=== PATIENT | male | born 1955 | race Caucasian/White ===

== ENCOUNTER 2018-03-15 09:08 | Inpatient (IN) ==
[2018-03-15] MEDS ORDERED: Acetaminophen 325 MG TABLET PO PRN (09:19)
[2018-03-15] MEDS ORDERED: Naloxone 0.4 MG/ML INJ IVP PRN (09:19)
[2018-03-15 10:10] LABS: Basophils # 0.1 K/mcL (0.0-0.2); Basophils % 1.1 %; Eosinophils # 0.3 K/mcL (0.0-0.6); Eosinophils % 5.2 %; Hematocrit 44.3 % (37.5-50.1); Immature Granulocytes % 0.2 % (0-4); Lymphocytes # 1.3 K/mcL (0.6-4.6); Lymphocytes % 20.2 %; Mean Corpuscular HGB Conc 33.9 g/dL (31.6-35.5); Mean Corpuscular Hemoglobin 29.8 pg (28.0-33.3); Mean Corpuscular Volume 88.1 fL (83.0-100.0); Mean Platelet Volume 10.5 fL (9.4-12.4); Monocytes # 0.6 K/mcL (0.0-1.3); Monocytes % 10.3 %; Neutrophils # 3.9 K/mcL (1.6-8.9); Platelet Count 257 K/mcL (140-400); Red Blood Count 5.03 M/mcL (4.19-5.50); Red Cell Distribution Width 13.9 % (11.5-14.5)
[2018-03-15 10:16] LABS: INR 1.9; Prothrombin Time 21.6 Seconds (9.4-12.1)
[2018-03-15 10:28] LABS: BUN/Creatinine Ratio 23 (6-26); Blood Urea Nitrogen 17 mg/dL (8-23); Calcium 9.4 mg/dL (8.6-10.3); Carbon Dioxide 26 mEq/L (23-29); Chloride 104 mEq/L (98-107); Glucose 112 mg/dL (70-105); Osmolality,Calculated 288 (280-300); Potassium 3.7 mEq/L (3.5-5.1); Sodium 138 mEq/L (136-145); eGFR For Non-African Americans > 60 (> 60)
--- NOTE | 2018-03-15 10:59 | History & Physical Report ---
Date of Encounter: 03/15/18 Time of Encounter: 10:00 24 Hour HP Update - Instructions Instructions: If the History and Physical is less than 30 days old and was completed prior to A.M. admission and or procedure and has NOT been updated on calendar day of procedure please complete this update prior to performing procedure. - Update Patient reports changes in Medical Condition: No Changes in examination, assessment, or condition: No Changes in Medication: No Preop tests/diagnostics Reviewed: Yes
--- NOTE | 2018-03-15 11:02 | Event Note ---
Date of Encounter: 03/15/18 Time of Encounter: 10:59 - Cardiology Event Note Patient with known history of persistent a.fib admitted for anti-arrythmic initiation. Patient follows with Dr.John Menchaca, [facility], outpatient. Plan for sotalol 80mg BID. ECG with a.fib, HR 85, QT 380, QTc 422ms. Renal function normal. On coumadin for anticoagulation, of note, INR has been subtherapeutic for the past 30 days. If would require cardioversion, would need SHARIF prior. Recent stress test negative for ischemia, positive for previous infarct. Discussed and reviewed with Dr.John Menchaca, will start sotalol. Will check ECGs daily in am. Will continue to monitor.
[2018-03-15] MEDS ORDERED: SUMAtriptan succinate 50 MG TABLET PO PRN (14:16)
[2018-03-15] MEDS ORDERED: Warfarin perPT PO PRN (18:00)
[2018-03-15] MEDS ORDERED: *HR* Warfarin 10 MG TABLET PO ONE (18:00)
[2018-03-15] MEDS: BENADRYL 25MG PO PRN (22:26)
[2018-03-16 05:25] LABS: Basophils # 0.1 K/mcL (0.0-0.2); Basophils % 1.2 %; Eosinophils # 0.4 K/mcL (0.0-0.6); Eosinophils % 7.5 %; Hematocrit 40.9 % (37.5-50.1); Hemoglobin 13.5 g/dL (12.9-16.9); Immature Granulocytes % 0.2 % (0-4); Lymphocytes # 1.6 K/mcL (0.6-4.6); Lymphocytes % 28.3 %; Mean Corpuscular Volume 87.8 fL (83.0-100.0); Mean Platelet Volume 10.1 fL (9.4-12.4); Monocytes # 0.7 K/mcL (0.0-1.3); Monocytes % 12.2 %; Neutrophils # 2.9 K/mcL (1.6-8.9); Platelet Count 208 K/mcL (140-400); Red Blood Count 4.66 M/mcL (4.19-5.50); Segmented Neutrophils % 50.6 %
[2018-03-16 05:30] LABS: INR 1.8; Prothrombin Time 20.7 Seconds (9.4-12.1)
[2018-03-16] MEDS: FLUTICASONE PROPIONATE NS SCH (08:55)
[2018-03-16] MEDS ORDERED: Ketorolac OPTH Soln 5 ML BOTTLE BOTH EYES SCH (09:00)
[2018-03-16] MEDS ORDERED: Fluticasone Propionate Nasal 50 MCG/SPRAY BOTTLE NS SCH (09:00)
--- NOTE | 2018-03-16 10:49 | Electrophysiology ProgressNote ---
Date of Encounter: 03/16/18 Time of Encounter: 10:45 Assessment and Plan (1) Encounter for monitoring anti-arrhythmic therapy Current Visit: Yes Status: Acute Per EP: -Admitted for sotalol initiation. -Baseline ECG with 03/15/18 A.fib, HR 85. QT 380, QTc 422ms. -ECG today s/p 2 total doses with a.fib, HR 94. QT 383, QTc 435ms. -Remains a.fib on telemetry. -On coumadin pharmacy to dose for anticoagulation. -Continue sotalol. -Will make NPO after midnight for possible SHARIF/DCCV in am, if remains in a.fib. Requires SHARIF due to subtherapeutic INRs. -ECG in am. -Will continue to monitor. (2) Afib Current Visit: No Status: Chronic Per EP: -Known persistent a.shea. -Currently on sotalol and coreg. -ON coumadin for anticoagulation. -HR controlled. -Will continue to monitor. Qualifiers: Atrial fibrillation type: persistent Qualified Code(s): I48.1 - Persistent atrial fibrillation Discussion w patient/family: The assessment and plan as outlined above was discussed with the patient who expressed understanding and agreement. All questions were answered. Thank you for involving us in the care of your patient. Please call with any questions. Discussed and reviewed with Dr.John Menchaca. Subjective Principal diagnosis: a.fib, sotalol initiation Interval history: Patient sitting in chair. Denies complaints. Objective Vital Signs, Last 4 Hours Temp Pulse Resp BP Pulse Ox 03/16/18 07:00 97.7 F 84 18 119/92 93 General: Conversant, No Apparent Distress HEENT: Atraumatic, Normocephaly, Mucus Membranes Moist Neck: No JVD, Normal carotid pulses Cardiac: Normal S1 and S2, No Murmur, Other (Irregularly irregular) Lungs: Normal Breath Sounds, No Wheeze, Rales, Rhonchi Neuro: Alert and responsive, No focal deficits noted Abdomen: Soft, Non-Tender Skin: No rashes noted on visualized skin Musculoskeletal: No Chest Wall Tenderness Extremities: No Clubbing, No Cyanosis, No Edema, Normal Pulses Results 03/16/18 05:09 03/15/18 09:33 Lab Results Active Medications Acetaminophen (Tylenol) 650 mg PO Q6HR PRN PRN Reason: Mild Pain/Fever Stop: 09/14/18 09:20 Carvedilol (Coreg) 3.125 mg PO BIDWM JOVAN PRN Reason: Protocol Stop: 09/14/18 17:01 Last Admin: 03/16/18 08:55 Dose: 3.125 mg Naloxone HCl (Narcan) 0.4 mg IVP Q2MIN PRN PRN Reason: SEE COMMENTS Stop: 09/14/18 09:20 Omeprazole (Prilosec) 40 mg PO DAILY JOVAN Stop: 09/15/18 09:01 Last Admin: 03/16/18 08:59 Dose: Not Given Pharmacy Profile Note (Patient Taking Own Medication) 1 each PO HS PRN PRN Reason: Insomnia Stop: 09/14/18 20:30 Last Admin: 03/15/18 22:26 Dose: 1 each Pharmacy Profile Note (Patient Taking Own Medication) 2 each NS DAILY JOVAN PRN Reason: Protocol Stop: 09/15/18 09:01 Last Admin: 03/16/18 08:55 Dose: 2 each Pharmacy Profile Note (Patient Taking Own Medication) 2 each PO BID JOVAN Stop: 09/14/18 21:01 Last Admin: 03/16/18 08:56 Dose: 2 each Pharmacy Profile Note (Patient Taking Own Medication) 1 each OP DAILY JOVAN Stop: 09/15/18 09:01 Last Admin: 03/16/18 08:55 Dose: 1 each Pharmacy Profile Note (Patient Taking Own Medication) 1 each PO DAILY JOVAN Stop: 09/15/18 09:01 Last Admin: 03/16/18 08:55 Dose: 1 each Sotalol HCl (Betapace) 80 mg PO Q12H JOVAN Stop: 09/14/18 11:01 Last Admin: 03/15/18 23:11 Dose: 80 mg Sumatriptan Succinate (Imitrex) 50 mg PO DAILY PRN PRN Reason: Migraine Headache Stop: 09/14/18 14:17 Warfarin Sodium (Coumadin Perpt) 1 each PO DAILY@1800 PRN PRN Reason: SEE COMMENTS Stop: 09/14/18 18:01 Warfarin Sodium (Coumadin) 10 mg PO 1800 ONE Stop: 03/16/18 18:01 Laboratory Tests 03/15/18 03/16/18 03/16/18 09:33 05:09 05:09 Hgb 13.5 D INR 1.8 Creatinine 0.74 - Imaging and Cardiology Chest Xray: report reviewed Stress Test: report reviewed - EKG Interpretation EKG results cardiology: personally reviewed (ECG today with a.fib, HR 94. QT 383 , QTc 435 ms.), other (Telemetry reveiwed with average HR previous 12 hours noted to be 93, a.fib. PVCs noted.) Consult Discharge Plan - Plan Referrals: Law Menchaca MD [Partnered Physician] - (office will call patient at home with follow up) Jaime Sorenson [Primary Care Provider] - (sent web reBuildFax on 03-16-18 @ 1011)
[2018-03-16] MEDS ORDERED: *HR* Warfarin 10 MG TABLET PO ONE (18:00)
[2018-03-16] MEDS: BENADRYL 25MG PO PRN (22:11)
[2018-03-17 04:58] LABS: Basophils # 0.1 K/mcL (0.0-0.2); Basophils % 1.3 %; Eosinophils # 0.5 K/mcL (0.0-0.6); Eosinophils % 7.1 %; Hematocrit 44.8 % (37.5-50.1); Hemoglobin 14.6 g/dL (12.9-16.9); Immature Granulocytes % 0.3 % (0-4); Lymphocytes % 28.9 %; Mean Corpuscular HGB Conc 32.6 g/dL (31.6-35.5); Mean Corpuscular Hemoglobin 29.1 pg (28.0-33.3); Mean Corpuscular Volume 89.4 fL (83.0-100.0); Mean Platelet Volume 10.1 fL (9.4-12.4); Monocytes # 0.7 K/mcL (0.0-1.3); Monocytes % 9.6 %; Neutrophils # 3.6 K/mcL (1.6-8.9); Platelet Count 243 K/mcL (140-400); Red Blood Count 5.01 M/mcL (4.19-5.50); Red Cell Distribution Width 13.9 % (11.5-14.5); Segmented Neutrophils % 52.8 %
[2018-03-17 05:03] LABS: INR 1.5; Prothrombin Time 17.3 Seconds (9.4-12.1)
[2018-03-17 07:33] VITALS: BP 123/80
[2018-03-17] MEDS: FLUTICASONE PROPIONATE NS SCH (08:03)
--- NOTE | 2018-03-17 10:40 | Discharge Summary ---
- NOTES TO OUTPATIENT PROVIDER Notes to Outpatient Provider: Initiated on sotalol. Did not undergo SHARIF/DCCV due to subtherapeutic INRs. Will arrange as outpatient when INRs therapeutic. Orders not resulted at time of discharge: Pending orders 03/18/18 04:00 INR/PT [Prothrombin Time INR] [COAG] AM 0400 03/19/18 04:00 INR/PT [Prothrombin Time INR] [COAG] AM 0400 03/20/18 04:00 INR/PT [Prothrombin Time INR] [COAG] AM 0400 Date of Encounter: 03/17/18 Time of Encounter: 10:37 - Discharge Diagnosis (1) Encounter for monitoring anti-arrhythmic therapy Priority: Primary Status: Acute Comments: Admitted for sotalol initiation. (2) Afib Priority: Secondary Status: Chronic Comments: Known persistent a.fib. Qualifiers: Atrial fibrillation type: persistent Qualified Code(s): I48.1 - Persistent atrial fibrillation - Hospital Course Hospital course: Mr. Multani is a 62 year old male who was admitted to [facility] for sotalol inititation. Patient is currently s/p 5th dose of sotalol. QT, QTc has remained stable. ECGs reviewed with Dr.John Menchaca. Unfortunately, patient's INR has been subtherapeutic and was not recommended for SHARIF/DCCV until INR therapurtic. Discussed options with patient regarding remaining inpatient, or discharge with outpatient SHARIF/DCCV. AT this time, patient has elected to be discharged home and will call office and arrange outpatient SHARIF/DCCV. Will need SHARIF due to subtherapeutic INRs. Patient remains in a.fib, HRs controlled. Average HR previous 12 hours noted to be 94. Vital signs stable. Patient is being prepped for discharge home in stable condition. Patient will follow with [facility], follow up set. Of note, patient's INRs monitored by coumadin clinic. - Time Spent with Patient Total time spent providing and/or coordinating discharge services: Less than 30 minutes - Discharge Medications Prescriptions: Carvedilol [Coreg] 3.125 mg PO BIDWM #60 tablet Sotalol [Betapace] 80 mg PO Q12H #60 tablet Home Medications: Fluticasone Propionate Nasal [Flonase] 2 spray NS DAILY 08/26/17 [History] Losartan Potassium [Cozaar] 100 mg PO DAILY 08/26/17 [History] Omeprazole [PriLOSEC] 40 mg PO DAILY 08/26/17 [History] SUMAtriptan succinate [Imitrex] 50 mg PO DAILY PRN 08/26/17 [History] Warfarin [Coumadin] 10 mg PO SUMOTUTHFRSA 03/15/18 [History] Warfarin [Coumadin] 15 mg PO WE 03/15/18 [History] Carvedilol [Coreg] 3.125 mg PO BIDWM #60 tablet 03/17/18 [Rx] Patient Taking Own Medication 1 each OP DAILY each 03/17/18 [Rx] Patient Taking Own Medication 1 each PO HS PRN each 03/17/18 [Rx] Patient Taking Own Medication 2 each PO BID each 03/17/18 [Rx] Sotalol [Betapace] 80 mg PO Q12H #60 tablet 03/17/18 [Rx] Allergies/Adverse Reactions: 3 Allergy/AdvReac Type Severity Reaction Status Date / Time No Known Allergies Allergy Verified 08/26/17 13:17 Date of admission: 03/15/18 09:09 Primary care physician: Jaime Sorenson Discharging clinician: Cary Esquivel Anticipated date of discharge: 03/17/18 Physical Examination Vital Signs, Last 4 Hours Temp Pulse Resp BP Pulse Ox 03/17/18 08:00 97.7 F 96 18 123/80 95 03/17/18 07:31 97.7 F 96 18 123/80 95 General: Conversant, No Apparent Distress HEENT: Atraumatic, Normocephaly, Mucus Membranes Moist Neck: No JVD, Normal carotid pulses Cardiac: Normal S1 and S2, No Murmur, Other (Irregularly irregular ) Lungs: Normal Breath Sounds, No Wheeze, Rales, Rhonchi Neuro: Alert and responsive, No focal deficits noted Abdomen: Soft, Non-Tender Skin: No rashes noted on visualized skin Musculoskeletal: No Chest Wall Tenderness Extremities: No Clubbing, No Cyanosis, No Edema, Normal Pulses - Patient Status Disposition: Home, Self-Care Condition: Good Functional capacity at discharge: independent ambulation Overall status at discharge: patient is progressing back to baseline - Discharge Instructions Instructions: Carvedilol (By mouth), Sotalol (By mouth), Atrial Fibrillation ( DC) Follow Up With: Law Menchaca MD [Partnered Physician] - (office will call patient at home with follow up) Jaime Sorenson [Primary Care Provider] - 03/23/18 10:00 am () - Diet and Activity Activity: increase activity as tolerated Diet: advance to your usual diet
--- NOTE | 2018-03-17 17:26 | Electrocardiograph Report ---
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
[2018-03-17] MEDS ORDERED: *HR* Warfarin 10 MG TABLET PO ONE (18:00)
--- NOTE | 2018-03-21 08:32 | Electrocardiograph Report ---
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
--- NOTE | 2018-03-21 09:22 | Electrocardiograph Report ---
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
--- NOTE | 2018-03-21 09:27 | Electrocardiograph Report ---
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
== END 2018-03-17 12:50 | disposition home or self-care (01) | DRG 949 ==
LOC: 2NNU 09:09
PROVIDERS: ADMIT Internal Medicine Clinical Cardiac Electrophysiology; ATTEND Internal Medicine Clinical Cardiac Electrophysiology

== ENCOUNTER 2018-04-27 09:00 | Inpatient (IN) ==
[2018-04-27] MEDS ORDERED: Naloxone 0.4 MG/ML INJ IVP PRN (09:36)
--- NOTE | 2018-04-27 09:39 | History & Physical Report ---
Addendum entered and electronically signed by Law Menchaca MD 04/29/18 12:52: I have personally performed a face to face evaluation on this patient. I have reviewed and agree with the care plan. History and Exam by me shows: Admitted for sotalol titration. Addendum entered and electronically signed by Santy Burdick CNP 04/27/18 10:49: Laboratory Tests 03/15/18 03/17/18 03/23/18 09:33 04:36 10:58 Hgb 14.6 Hct 44.8 INR 1.9 Creatinine 0.74 Est GFR (Non-Af Amer) > 60 See note on chart for full H&P. Patient denies any new concerns or complaints since last seen in the office 04/14/2018 by Geraldine Weiss CNP. Patient directly admitted for sotalol increase. Reports has not had sotalol dose this morning. Reports he can "tell he is out of rhythm". ECG shows A. fib in the 70s with current QTC 425 ms. Remains anticoagulated with Xarelto 20mg PO daily. Has not missed any doses in past 30 days. We will proceed with increased dose of sotalol 120mg by mouth every 12 hours with potential DC cardioversion morning. All questions answered. Negative nuclear stress test February 2018 with EF 50%. Original Note: Date of Encounter: 04/27/18 Time of Encounter: 09:40 24 Hour HP Update - Instructions Instructions: If the History and Physical is less than 30 days old and was completed prior to A.M. admission and or procedure and has NOT been updated on calendar day of procedure please complete this update prior to performing procedure. - Update Patient reports changes in Medical Condition: No Changes in examination, assessment, or condition: No Changes in Medication: No Preop tests/diagnostics Reviewed: Yes Review of Patient reveals the following changes:: Direct admission for sotalol titration for paroxysmal atrial fibrillation
[2018-04-27] MEDS ORDERED: SUMAtriptan succinate 50 MG TABLET PO PRN (10:44)
[2018-04-27] MEDS: Ketorolac OPTH Soln 5 ML BOTTLE BOTH EYES SCH (11:24)
[2018-04-27] MEDS: Fluticasone Propionate Nasal 50 MCG/SPRAY BOTTLE NS SCH (11:24)
--- NOTE | 2018-04-27 17:11 | Electrocardiograph Report ---
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
[2018-04-27] MEDS: *HR* Rivaroxaban 10 MG TABLET PO SCH (17:40)
--- NOTE | 2018-04-28 09:45 | Electrophysiology ProgressNote ---
Date of Encounter: 04/28/18 Time of Encounter: 08:20 Assessment and Plan (1) Encounter for monitoring anti-arrhythmic therapy Current Visit: No Status: Acute Mr. Multani presented 04/27/18 for sotalol therapy dose titration for recurrent afib. He will require five monitored doses. Sotalol increased from 80 mg BID to 120 mg BID. He is tolerating well. Baseline ECG -A. fib in the 70s with current QTC 425 ms. ECG 04/28/18- A. fib, HR 78bpm. QT/QTc 407/440, QRS 121. S/p 3 total doses increased sotalol. Remains atrial fibrillation with avg HR 87 bpm, min HR 54 bpm. He is also on carvedilol 3.125 mg BID. On xarelto for buttermaker AC. Denies missed doses in the past 30 days. If he remains in atrial fibrillation he will need DCCV tomorrow morning after his 5th dose. NPO after midnight. Patient agrees with plan. (2) Afib Current Visit: No Status: Chronic Qualifiers: Atrial fibrillation type: paroxysmal Qualified Code(s): I48.0 - Paroxysmal atrial fibrillation Discussion w patient/family: The assessment and plan as outlined above was discussed with the patient and/or family members who expressed understanding and agreement. All questions were answered. Thank you for involving us in the care of your patient. Please call with any questions. Subjective Principal diagnosis: atrial fibrillation, antiarrhythmic therapy Interval history: Mr. Multani is ambulatin in his room with no complaints. Denies chest pain or SOB. Denies palpitations. Denies orthopnea, PND, or edema. Objective Vital Signs, Last 4 Hours Temp Pulse Resp BP Pulse Ox 04/28/18 08:40 97.9 F 94 17 107/69 94 General: Conversant, No Apparent Distress HEENT: Atraumatic, Normocephaly, Mucus Membranes Moist Neck: No JVD, Normal carotid pulses Cardiac: Other (Irregularly irregular) Lungs: Normal Breath Sounds, No Wheeze, Rales, Rhonchi Neuro: Alert and responsive, No focal deficits noted Abdomen: Soft, Non-Tender Skin: No rashes noted on visualized skin Musculoskeletal: No Chest Wall Tenderness Extremities: No Clubbing, No Cyanosis, No Edema, Normal Pulses Results - Imaging and Cardiology Echo: report reviewed - EKG Interpretation EKG results cardiology: personally reviewed - VTE Reasons for not Prescribing Prophylaxis: Not indicated-Anticoagulated or INR therapeutic Consult Discharge Plan - Plan Referrals: Jaime Sorenson [Primary Care Provider] -
[2018-04-28] MEDS: Fluticasone Propionate Nasal 50 MCG/SPRAY BOTTLE NS SCH (10:02)
[2018-04-28] MEDS: Ketorolac OPTH Soln 5 ML BOTTLE BOTH EYES SCH (10:03)
--- NOTE | 2018-04-28 16:18 | Electrocardiograph Report ---
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
[2018-04-28] MEDS: *HR* Rivaroxaban 10 MG TABLET PO SCH (17:32)
--- NOTE | 2018-04-29 08:17 | Event Note ---
Date of Encounter: 04/29/18 Time of Encounter: 08:15 - Cardiology Event Note Status post 5 doses of increased sotalol 120 mg by mouth every 12 hours. Currently A. fib in the 70s to 90s on telemetry. Current ECG with QTC of: 431ms, afib 70's. Patient has not missed any doses of Xarelto in the past 30 days. Plan for DC cardioversion today and possible discharge this afternoon. All questions answered.
[2018-04-29] MEDS: Ketorolac OPTH Soln 5 ML BOTTLE BOTH EYES SCH (09:10)
[2018-04-29] MEDS: Fluticasone Propionate Nasal 50 MCG/SPRAY BOTTLE NS SCH (09:11)
[2018-04-29] MEDS ORDERED: *HR* FentaNYL (PF) 100 MCG/2 ML VIAL IVP PRN (12:40)
[2018-04-29] MEDS ORDERED: 0.9 % Sodium Chloride 500 ML IVC ONE (12:41)
[2018-04-29] MEDS ORDERED: *HR* Midazolam HCl 2 MG/2 ML VIAL IVP PRN (12:41)
[2018-04-29 13:25] VITALS: BP 120/95
[2018-04-29] MEDS ORDERED: *HR* Midazolam HCl 5 MG/5 ML VIAL IVP ONE ×3 (13:33→13:34)
--- NOTE | 2018-04-29 14:32 | Discharge Summary ---
Orders not resulted at time of discharge: Pending orders 04/29/18 08:14 EV cardioversion Routine 04/30/18 06:00 ECG 12 lead ECG [ECG] AM 0600 Date of Encounter: 04/29/18 Time of Encounter: 14:32 - Discharge Diagnosis (1) Encounter for monitoring anti-arrhythmic therapy Priority: Primary Status: Acute Comments: Status post direct admission for sotalol titration. (2) Afib Priority: Primary Status: Chronic Comments: PAF Qualifiers: Atrial fibrillation type: paroxysmal Qualified Code(s): I48.0 - Paroxysmal atrial fibrillation - Hospital Course Hospital course: Mr. Multani is a 62 year old male directly admitted for titration of sotalol. Patient received 5 doses of 120 mg by mouth every 12 hours with stable QTC. Patient remained A. fib throughout hospital stay, rate controlled. Underwent DC cardioversion with 1 shock today 300 J with successful conversion to sinus rhythm. Remains anticoagulated with Xarelto. During hospital stay, Coreg was decreased from 6.25mg PO BID to 3.125mg PO BID. Continue to monitor as outpatient and consider discontinuation if clinically warranted. Patient provided new prescription for sotalol 120 mg by mouth twice a day. All questions answered. Postprocedure education provided. - Time Spent with Patient Total time spent providing and/or coordinating discharge services: Less than 30 minutes - Discharge Medications Prescriptions: Sotalol [Betapace] 120 mg PO Q12HR #90 tablet Carvedilol [Coreg] 3.125 mg PO BIDWM #60 tablet Home Medications: Fluticasone Propionate Nasal [Flonase] 2 spray NS DAILY 08/26/17 [History] Losartan Potassium [Cozaar] 100 mg PO DAILY 08/26/17 [History] Omeprazole [PriLOSEC] 40 mg PO DAILY PRN 08/26/17 [History] SUMAtriptan succinate [Imitrex] 50 mg PO DAILY PRN 08/26/17 [History] DiphenhydraMINE [Benadryl] 25 mg PO HS 04/27/18 [History] Guaifenesin [Guaifenesin ER] 1,200 mg PO BID 04/27/18 [History] Ketorolac OPTH Soln [Acular] 1 drop BOTH EYES DAILY 04/27/18 [History] Rivaroxaban [Xarelto] 20 mg PO DAILY 04/27/18 [History] Carvedilol [Coreg] 3.125 mg PO BIDWM #60 tablet 04/29/18 [Rx] Sotalol [Betapace] 120 mg PO Q12HR #90 tablet 04/29/18 [Rx] Allergies/Adverse Reactions: Allergy/AdvReac Type Severity Reaction Status Date / Time No Known Allergies Allergy Verified 08/26/17 13:17 Date of admission: 04/27/18 09:07 Primary care physician: Jaime Sorenson Consults: none Discharging clinician: Santy Burdick Anticipated date of discharge: 04/29/18 Physical Examination Vital Signs, Last 4 Hours Temp Pulse Resp BP Pulse Ox 04/29/18 13:21 97.7 F 77 12 120/95 94 04/29/18 11:36 97.4 F L 87 16 128/89 95 General: Conversant, No Apparent Distress HEENT: Atraumatic, Normocephaly, Mucus Membranes Moist Neck: No JVD, Normal carotid pulses Cardiac: Reg Rate and Rhythm, Normal S1 and S2, No Murmur Lungs: Normal Breath Sounds, No Wheeze, Rales, Rhonchi Neuro: Alert and responsive, No focal deficits noted Abdomen: Soft, Non-Tender Skin: No rashes noted on visualized skin Musculoskeletal: No Chest Wall Tenderness Extremities: No Clubbing, No Cyanosis, No Edema, Normal Pulses - Patient Status Disposition: Home, Self-Care Condition: Fair Functional capacity at discharge: independent ambulation Overall status at discharge: patient is progressing back to baseline - Discharge Instructions Follow Up With: Jaime Sorenson [Primary Care Provider] - 05/07/18 10:00 am () Willie Hazel MD [Partnered Physician] - 05/05/18 11:00 am - Diet and Activity Diet: advance to your usual diet - VTE Reasons for not Prescribing Prophylaxis: Not indicated-Anticoagulated or INR therapeutic
== END 2018-04-29 15:34 | disposition home or self-care (01) | DRG 950 ==
LOC: 3BNU 09:07
PROVIDERS: ADMIT Internal Medicine Clinical Cardiac Electrophysiology; ATTEND Internal Medicine Clinical Cardiac Electrophysiology

== ENCOUNTER 2018-07-12 07:24 | Inpatient (IN) ==
[2018-07-12] MEDS ORDERED: Lidocaine 2% Syringe 100 MG/5 ML IV ONE (07:34)
[2018-07-12] MEDS ORDERED: Neostigmine Methylsulfate 3 MG/3 ML SYRINGE IV ONE (07:34)
[2018-07-12] MEDS ORDERED: Lidocaine -MPF 4% 5 ML AMPUL INFILT ONE (07:34)
[2018-07-12] MEDS ORDERED: *HR* Rocuronium Bromide 50 MG/5 ML VIAL IVC ONE (07:34)
[2018-07-12] MEDS ORDERED: Ondansetron 4 MG/2 ML VIAL IVP ONE (07:34)
[2018-07-12] MEDS ORDERED: *HR* Propofol 200 MG/20 ML VIAL IVP ONE (07:34)
[2018-07-12] MEDS ORDERED: 0.9 % Sodium Chloride 10 ML PF VIAL IVP ONE (07:34)
[2018-07-12] MEDS ORDERED: *HR* Phenylephrine 10 MG/ML VIAL IVC ONE (07:34)
[2018-07-12] MEDS ORDERED: 0.9 % Sodium Chloride 1,000 ML IVC SCH (07:45)
[2018-07-12] MEDS ORDERED: *HR* Heparin 10,000 UNIT/10 ML VIAL ONE (07:53)
[2018-07-12] MEDS ORDERED: Heparin 1,000 UNITS/500 mL 1,500 ML ONE (07:53)
--- NOTE | 2018-07-12 07:59 | Anesthesia Evaluation PreOp ---
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 tkr, R. Shoulder) Alcohol Use: none Drug use: none Medications and Allergies Fluticasone Propionate Nasal [Flonase] 2 spray NS DAILY 08/26/17 [History] Losartan Potassium [Cozaar] 100 mg PO DAILY 08/26/17 [History] SUMAtriptan succinate [Imitrex] 50 mg PO DAILY PRN 08/26/17 [History] DiphenhydraMINE [Benadryl] 25 mg PO HS 04/27/18 [History] Guaifenesin [Guaifenesin ER] 1,200 mg PO BID 04/27/18 [History] Ketorolac OPTH Soln [Acular] 1 drop BOTH EYES DAILY 04/27/18 [History] Rivaroxaban [Xarelto] 20 mg PO DAILY 04/27/18 [History] Carvedilol [Coreg] 3.125 mg PO BIDWM #60 tablet 04/29/18 [Rx] Sotalol [Betapace] 120 mg PO Q12HR #90 tablet 04/29/18 [Rx] Allergy/AdvReac Type Severity Reaction Status Date / Time No Known Allergies Allergy Verified 08/26/17 13:17 - Meds/Allergy Pre-op Review Medications Reviewed: Yes Allergies Reviewed: Yes Beta Blockers on Current Med List: Yes (coreg ) If Beta Blockers taken, Date/Time (Last Dose taken): 0700 Anesthesia Results - Labs Laboratory Tests 06/30/18 06/30/18 06/30/18 12:04 12:04 12:04 WBC 6.2 Hgb 14.4 Hct 44.0 Plt Count 226 PT 12.3 H INR 1.1 APTT 34.9 Sodium 139 Potassium 4.2 Chloride 103 Carbon Dioxide 29 BUN 13 Creatinine 0.70 Est GFR ( Amer) > 60 - Imaging EKG: report reviewed (Atrial fibrillation with elevated heart rate Borderline repolarization abnormality) Additional studies: 03/2018 SHARIF Impressions: LVEF 50%. Normal LV size and low normal function. Right ventricle was normal in size and systolic function. Moderate to severely dilated left atrium. LA appendage is normal in appearance. No thrombus. The LA appendage flow velocity is reduced. Mild mitral regurgitation. RVSP not well obtained due to suboptimal TR jet. Cardioversion Impressions: Successful SHARIF guided cardioversion using 300 Joules. Conversion to sinus bradycardia, HR 50s. No neurological deficits after the procedure. Left Ventricular Wall Motion: Transesophageal Echo Findings All wall segments showed normal motion. Findings: Study Quality * Technically adequate exam. ECG Findings * Atrial fibrillation. Left Ventricle * LVEF 50%. * Normal LV size and low normal function. Right Ventricle * Right ventricle was normal in size and systolic function. Left Atrium * Moderate to severely dilated left atrium. * LA appendage is normal in appearance. No thrombus. * The LA appendage flow velocity is reduced. Right Atrium * Mildly dilated right atrium. Interatrial Septum * No evidence of patent foramen ovale by color Doppler. Aortic Valve * Trileaflet aortic valve. * Normal structure and function. * No aortic regurgitation. * No aortic stenosis. Mitral Valve * Normal structure. * Mild mitral regurgitation. * No mitral stenosis. Tricuspid Valve * Normal structure and function. * Trace tricuspid regurgitation. * RVSP not well obtained due to suboptimal TR jet. Pulmonic Valve * Normal structure and function. * No pulmonic regurgitation. Aorta * The aortic root is not dilated. Minimal plaque formation in the descending thoracic aorta. Pericardium * No pericardial effusion. Pulmonary Artery * Normal pulmonary artery. Anesthesia Exam Weight: 115 kg NPO (# of Hours): > 8 hr - HEENT Pupil (Motor): Pupils equal, EOMI Mallampati: II Teeth: Normal Oral Opening: Greater than 3 - BARREL PLANER LOC: Oriented BARREL PLANER Motor: Normal RUE, Normal LUE, Normal RLE, Normal LLE, Normal Face BARREL PLANER Sensory: Normal: RUE, LUE, RLE, LLE, Face - Cardiac Rhythm: Irregular Murmur: None - Pulmonary Breath Sounds: bilateral Clear Respiratory Effort: Symmetrical Anesthesia Assess/Plan ASA Score: 3 (HTN, Afib) Level of consciousness: Cooperative, Oriented, Tranquil Anesthetic Plan: General Monitoring Plan: Standard Monitors Recovery Plan: PACU
[2018-07-12] MEDS ORDERED: *HR* FentaNYL (PF) 100 MCG/2 ML VIAL ONE (08:18)
[2018-07-12] MEDS ORDERED: *HR* Midazolam HCl 2 MG/2 ML VIAL ONE (08:19)
[2018-07-12] MEDS ORDERED: *HR* Vasopressin 20 UNIT/ML VIAL ONE (08:33)
--- NOTE | 2018-07-12 08:56 | Electrophysiology H & P ---
Date of Encounter: 07/12/18 Time of Encounter: 08:53 Assessment and Plan (1) Afib Current Visit: No Status: Chronic The assessment and plan as outlined above was discussed with the patient and/or family members who expressed understanding and agreement. All questions were answered. Qualifiers: Atrial fibrillation type: paroxysmal Qualified Code(s): I48.91 - Unspecified atrial fibrillation History of Present Illness Chief complaint: PAF HPI: Mr. Multani is a 62 year old male with a history of PAF. He has had recurrent symptoms despite sotalol. He is symptomatic and risks and benefits of cryoablation for AF were discussed. He agreed to proceed. Past Med Surg Social Fam HX - Past Medical History Medical history: atrial fibrillation, GERD, hyperlipidemia, hypertension, migraine, myocardial infarction Additional medical history: thyroid nodule,hiatial hernia,heart history, Psychiatric history: no psych history - Past Surgical History Surgical History: knee replacement, orthopedic, other Additional surgical history: RIGHT KNEE. RIGHT SHOULDER - Social History Smoking Status: Former smoker Smokeless Tobacco Status: No Alcohol use: none Drug use: none - Family History Mother Living Status: Hx Family Cardiac Disorders: Yes (stroke, pacemaker, CHF) Father Living Status: Hx Family Cancer: Yes (non-hod) Medications and Allergies Fluticasone Propionate Nasal [Flonase] 2 spray NS DAILY 08/26/17 [History] Losartan Potassium [Cozaar] 100 mg PO DAILY 08/26/17 [History] SUMAtriptan succinate [Imitrex] 50 mg PO DAILY PRN 08/26/17 [History] DiphenhydraMINE [Benadryl] 25 mg PO HS 04/27/18 [History] Guaifenesin [Guaifenesin ER] 1,200 mg PO BID 04/27/18 [History] Ketorolac OPTH Soln [Acular] 1 drop BOTH EYES DAILY 04/27/18 [History] Rivaroxaban [Xarelto] 20 mg PO DAILY 04/27/18 [History] Carvedilol [Coreg] 3.125 mg PO BIDWM #60 tablet 04/29/18 [Rx] Sotalol [Betapace] 120 mg PO Q12HR #90 tablet 04/29/18 [Rx] Allergy/AdvReac Type Severity Reaction Status Date / Time No Known Allergies Allergy Verified 08/26/17 13:17 All Systems Review: The remainder of the systems were reviewed and are negative Physical Examination Vital Signs, Last 4 Hours Temp Pulse Resp BP Pulse Ox 07/12/18 08:10 97.5 F L 93 18 116/77 95 General: Conversant, No Apparent Distress HEENT: Atraumatic, Normocephaly, Mucus Membranes Moist Neck: No JVD, Normal carotid pulses Cardiac: Reg Rate and Rhythm, Normal S1 and S2, No Murmur Lungs: Normal Breath Sounds, No Wheeze, Rales, Rhonchi Neuro: Alert and responsive, No focal deficits noted Abdomen: Soft, Non-Tender Skin: No rashes noted on visualized skin Musculoskeletal: No Chest Wall Tenderness Extremities: No Clubbing, No Cyanosis, No Edema, Normal Pulses
[2018-07-12] MEDS ORDERED: ISOVUE-370 200 ML INFUS..BTL ONE (09:41)
[2018-07-12] MEDS ORDERED: 0.9 % Sodium Chloride 1,000 ML ONE (10:25)
[2018-07-12] MEDS ORDERED: Protamine Sulfate 50 MG/5 ML VIAL IVP ONE (11:41)
[2018-07-12] MEDS ORDERED: Naloxone 0.4 MG/ML INJ IVP PRN (11:52)
[2018-07-12] MEDS ORDERED: SUMAtriptan succinate 50 MG TABLET PO PRN (12:01)
--- NOTE | 2018-07-12 15:00 | Anesthesia Evaluation Post Op ---
Date of Encounter: 07/12/18 Time of Encounter: 15:00 - Vital Signs Vital Signs: Vital Signs/O2 Sat/Glucose, Most Recent Temp Pulse Resp BP Pulse Ox 97.5 F L 93 18 116/77 95 07/12/18 08:10 07/12/18 08:10 07/12/18 08:10 07/12/18 08:10 07/12/18 08:10 - Lungs Lungs: Clear Ascult./Percussion - Airway Airway: Non-obstructed - Cardiovascular Regular Rate - Mental Status Mental Status: Alert & Oriented, Answers Appropriately - Pain Pain Scale: 0 - Nausea Vomiting Nausea Vomiting: Not Present - Hydration Hydration: NPO - Discharge PostOp Status: Transfer Patient to floor
[2018-07-12] MEDS ORDERED: *HR* Rivaroxaban 10 MG TABLET PO SCH (18:00)
[2018-07-13 07:35] VITALS: BP 101/65
[2018-07-13] MEDS ORDERED: Ketorolac OPTH Soln 5 ML BOTTLE BOTH EYES SCH (09:00)
[2018-07-13] MEDS ORDERED: Fluticasone Propionate Nasal 50 MCG/SPRAY BOTTLE NS SCH (09:00)
[2018-07-13] MEDS ORDERED: *HR* Rivaroxaban 10 MG TABLET PO SCH (09:00)
--- NOTE | 2018-07-13 10:01 | Discharge Summary ---
Orders not resulted at time of discharge: Pending orders 07/12/18 07:45 CL Ablation [CL] Routine Date of Encounter: 07/13/18 Time of Encounter: 09:57 - Discharge Diagnosis (1) S/P cryoablation of arrhythmia Priority: Primary Status: Acute (2) Afib Priority: Primary Status: Chronic Qualifiers: Atrial fibrillation type: paroxysmal Qualified Code(s): I48.0 - Paroxysmal atrial fibrillation - Hospital Course Hospital course: Mr. Multani is a 62 year old male with hx of PAF on Sotalol and Xarelto with recurrent symptoms despite sotalol. Presented for cryoablation yesterday 07/12/18. Reports left testicle swelling this AM. Examined and there is no swelli ng noted. Bilateral femoral access sites healing well. Right side with mild ecchymosis, left sided there is no ecchymosis noted. Restrictions discussed. Continue Sotalol and Xarelto. D/C home in stable condition. Will coordinate outpt follow-up. - Time Spent with Patient Total time spent providing and/or coordinating discharge services: Less than 30 minutes - Discharge Medications Home Medications: Fluticasone Propionate Nasal [Flonase] 2 spray NS DAILY 08/26/17 [History] Losartan Potassium [Cozaar] 100 mg PO DAILY 08/26/17 [History] SUMAtriptan succinate [Imitrex] 50 mg PO DAILY PRN 08/26/17 [History] DiphenhydraMINE [Benadryl] 25 mg PO HS 04/27/18 [History] Guaifenesin [Guaifenesin ER] 1,200 mg PO BID 04/27/18 [History] Ketorolac OPTH Soln [Acular] 1 drop BOTH EYES DAILY 04/27/18 [History] Rivaroxaban [Xarelto] 20 mg PO DAILY 04/27/18 [History] Carvedilol [Coreg] 3.125 mg PO BIDWM #60 tablet 04/29/18 [Rx] Sotalol [Betapace] 120 mg PO Q12HR #90 tablet 04/29/18 [Rx] Allergies/Adverse Reactions: Allergy/AdvReac Type Severity Reaction Status Date / Time No Known Allergies Allergy Verified 08/26/17 13:17 Date of admission: 07/12/18 17:02 Primary care physician: Jaime Sorenson Discharging clinician: Marco R Darrell Anticipated date of discharge: 07/13/18 Physical Examination Vital Signs, Last 4 Hours Temp Pulse Resp BP Pulse Ox 07/13/18 07:30 98.6 F 64 16 101/65 92 Vital Signs Temp Pulse Pulse Pulse Resp BP Pulse Ox 07/13/18 07:30 98.6 F 64 16 101/65 92 07/13/18 04:18 98.7 F 72 16 96/62 95 07/13/18 01:01 98.3 F 69 15 102/58 95 07/12/18 19:51 98.9 F 65 17 111/65 94 07/12/18 19:02 65 110/64 95 07/12/18 18:08 65 106/66 07/12/18 17:35 66 66 07/12/18 17:07 98.0 F 66 18 99/65 94 07/12/18 17:06 98.1 F 66 18 98/63 92 07/12/18 17:00 65 65 07/12/18 16:45 65 99/65 100 Intake and Output 07/12/18 07/13/18 07/13/18 23:59 07:59 15:59 Intake Total 120 / 120 120 / 120 Output Total 375 / 375 980 / 980 Balance -255 / -255 -980 / -980 120 / 120 Intake: Oral 120 / 120 120 / 120 Output: Urine 375 / 375 980 / 980 Other: Meal Dinner Breakfast Percent of Meal Consumed 50% 100% Weight 117.8 kg Patient Weight 07/13/18 23:59 Weight 117.8 kg General: Conversant, No Apparent Distress HEENT: Atraumatic, Normocephaly, Mucus Membranes Moist Neck: No JVD, Normal carotid pulses Cardiac: Reg Rate and Rhythm, Normal S1 and S2, No Murmur Lungs: Normal Breath Sounds, No Wheeze, Rales, Rhonchi Neuro: Alert and responsive, No focal deficits noted Abdomen: Soft, Non-Tender Skin: No rashes noted on visualized skin Musculoskeletal: No Chest Wall Tenderness Extremities: No Clubbing, No Cyanosis, No Edema, Normal Pulses - Patient Status Disposition: Home, Self-Care Condition: Fair Functional capacity at discharge: independent ambulation Overall status at discharge: patient is progressing back to baseline - Discharge Instructions Follow Up With: Savaille,Jaime E [Primary Care Provider] - Additional Instructions: ACTIVITY: It is recommended to have someone stay overnight for the first night after the procedure. Avoid strenuous activity, climbing stairs, and no lifting more than 5 pounds (gallon of milk) for 5-7 days to minimize risk of bleeding from procedure site. BATHING/SHOWERING: Sponge bathe only for the first 24 hours. You may shower after 24 hours. Allow water to rinse over site, do not scrub site, and pat dry gently with a towel. No baths, hot tubs, or soaking for 5-7 days. WOUND CARE: Do not remove the bandage over the site for 24 hours. Do not use any antibiotic ointment or Vitamin E on the site. If you have any bleeding or swelling to the groin, please lay flat and hold pressure for 15 minutes. Return to work as instructed per physician Resume driving as instructed per physician Keep all scheduled follow up appointments Resume medications as instructed Contact [facility] ( ) if: You develop excessive bleeding from insertion or wound site not controlled by applying pressure You develop a fever greater than 101 degrees Fahrenheit Your incision becomes reddened at or around the site Your incision develops yellowish or greenish drainage or development of white pimple-like bumps You experience excessive pain You experience muscle switching If you experience chest pain, shortness of breath, dizziness, or extreme tiredness, stop the activity and rest. Please notify [facility] office if you experience any of these symptoms and they are not relieved by rest please call 911! - Diet and Activity Activity: as per physical therapy Diet: low fat, low cholesterol - VTE Reasons for not Prescribing Prophylaxis: Not indicated-Anticoagulated or INR therapeutic
--- NOTE | 2018-07-13 17:28 | Electrocardiograph Report ---
[address] [address] Test Date: 2018-07-12 Pat Name: Rivera Multani Department: 106 Room: 05 Gender: M Documentation Designer: : [id number] Requested By: Law Menchaca Order Number: [id number] Reading MD: Megan Menchaca Measurements Intervals [place] Rate: 83 P: AK: 0 QRS: 15 QRSD: 105 T: 68 QT: 393 QTc: 433 Interpretive Statements ATRIAL FIBRILLATION ABNORMAL RHYTHM ECG Electronically Signed On 07-13-2018 17:27:01 EST by Megan Menchaca
== END 2018-07-13 11:09 | disposition home or self-care (01) | DRG 310 ==
LOC: INVDIALAB 07:24 → 2NNU 17:02
PROVIDERS: ADMIT Internal Medicine Clinical Cardiac Electrophysiology; ATTEND Internal Medicine Clinical Cardiac Electrophysiology

== ENCOUNTER 2019-06-11 08:08 | Inpatient (IN) ==
[2019-06-11] MEDS ORDERED: CeFAZolin Syr 2,000MG/20 ML 2,000 MG/20 ML SYRINGE IVPB ONE (08:19)
[2019-06-11] MEDS ORDERED: Ringers Solution, Lactated 1,000 ML IVC SCH ×2 (08:30→12:22)
[2019-06-11] MEDS ORDERED: *HR* Propofol 200 MG/20 ML VIAL IVP ONE (08:52)
[2019-06-11] MEDS ORDERED: *HR* FentaNYL (PF) 100 MCG/2 ML VIAL ONE (08:52)
[2019-06-11] MEDS ORDERED: Lidocaine -MPF 2% 2 ML VIAL ONE (08:52)
[2019-06-11] MEDS ORDERED: *HR* Midazolam HCl 2 MG/2 ML VIAL ONE (08:52)
[2019-06-11] MEDS ORDERED: *HR* Promethazine 25 MG/ML VIAL IVP PRN (09:21)
[2019-06-11] MEDS ORDERED: Acetaminophen IV 1,000 MG/100 ML INFUS..BTL IVPB ONE (09:21)
[2019-06-11] MEDS ORDERED: *HR* Meperidine 25 MG/ML SYRINGE IVP PRN (09:21)
[2019-06-11] MEDS ORDERED: *HR* FentaNYL (PF) 100 MCG/2 ML VIAL IVP PRN (09:21)
[2019-06-11] MEDS ORDERED: *HR* HYDROmorphone (PF) 1 MG/ML SYRINGE IVP PRN (09:21)
[2019-06-11] MEDS ORDERED: *HR* Midazolam HCl 2 MG/2 ML VIAL IVP PRN (09:21)
[2019-06-11] MEDS ORDERED: *HR* OxyCODONE Immed Rel 5 MG TABLET PO PRN ×2 (09:21→12:22)
[2019-06-11] MEDS ORDERED: Ropivacaine/PF 0.5% 30 ML VIAL ONE (09:39)
[2019-06-11] MEDS ORDERED: Ethanol\\Acetic Acid\\Na Ace\\Ben 1,000 ML IRRIG.SOLN IR ONE (09:44)
[2019-06-11] MEDS ORDERED: *HR* Succinylcholine 200 MG/10 ML VIAL IVP ONE (10:36)
[2019-06-11] MEDS ORDERED: Dexamethasone 4 MG/ML VIAL ONE ×2 (10:36→12:33)
[2019-06-11] MEDS ORDERED: Ondansetron 4 MG/2 ML VIAL ONE ×2 (10:36→12:33)
[2019-06-11] MEDS ORDERED: *HR* PHENYLEPHRINE 1,000 MCG/10 ML SYRINGE IVP ONE (10:48)
[2019-06-11] MEDS ORDERED: EPHEDrine 50 MG/ML VIAL ONE ×2 (11:03→12:34)
[2019-06-11] MEDS ORDERED: Ketorolac 30 MG/ML VIAL ONE (11:14)
[2019-06-11 12:16] LABS: Hematocrit 41.8 % (37.5-50.1); Hemoglobin 13.5 g/dL (12.9-16.9)
[2019-06-11] MEDS ORDERED: Sennosides 8.6 MG TABLET PO PRN (12:22)
[2019-06-11] MEDS ORDERED: Ondansetron 4 MG/2 ML VIAL IVP PRN (12:22)
[2019-06-11] MEDS ORDERED: *HR* OxyCODONE/APAP 5/325 TABLET PO PRN (12:22)
[2019-06-11] MEDS ORDERED: Temazepam 15 MG CAPSULE PO PRN (12:22)
[2019-06-11] MEDS ORDERED: MOM Conc 10 ML UD.LIQ PO PRN (12:22)
[2019-06-11] MEDS ORDERED: Naloxone 0.4 MG/ML INJ IVP PRN (12:22)
[2019-06-11] MEDS ORDERED: carvediloL 6.25 MG TABLET PO SCH (17:00)
[2019-06-11 17:02] VITALS: BP 120/70
[2019-06-11] MEDS ORDERED: *HR* Rivaroxaban 10 MG TABLET PO SCH (18:00)
[2019-06-12] MEDS ORDERED: Fluticasone Propionate Nasal 50 MCG/SPRAY BOTTLE NS SCH (09:00)
[2019-06-12] MEDS ORDERED: Ketorolac OPTH Soln 5 ML BOTTLE BOTH EYES SCH (09:00)
== END 2019-06-11 19:00 | disposition home or self-care (01) | DRG 483 ==
LOC: SAMDAY 08:08 → 3NENU 12:02
PROVIDERS: ADMIT Orthopaedic Surgery; ATTEND Orthopaedic Surgery

== ENCOUNTER 2019-11-24 13:29 | Inpatient (IN) ==
[2019-11-24] MEDS ORDERED: CeFAZolin Syr 2,000MG/20 ML 2,000 MG/20 ML SYRINGE IVPB ONE (13:56)
[2019-11-24] MEDS ORDERED: Ringers Solution, Lactated 1,000 ML IVC SCH ×2 (14:00→19:22)
[2019-11-24] MEDS ORDERED: Famotidine 20 MG/2 ML VIAL IVP ONE (14:34)
[2019-11-24] MEDS ORDERED: Acetaminophen IV 1,000 MG/100 ML INFUS..BTL IVPB ONE (14:35)
[2019-11-24] MEDS ORDERED: *HR* FentaNYL (PF) 100 MCG/2 ML VIAL ONE (15:43)
[2019-11-24] MEDS ORDERED: *HR* Midazolam HCl 2 MG/2 ML VIAL ONE (15:43)
[2019-11-24] MEDS ORDERED: Ropivacaine/PF 0.5% 30 ML VIAL ONE (15:44)
[2019-11-24] MEDS ORDERED: Lidocaine -MPF 2% 5 ML VIAL ONE (15:44)
[2019-11-24] MEDS ORDERED: Ethanol\\Acetic Acid\\Na Ace\\Ben 1,000 ML IRRIG.SOLN IR ONE (16:22)
[2019-11-24] MEDS ORDERED: Lidocaine -MPF 2% 2 ML VIAL ONE (16:24)
[2019-11-24] MEDS ORDERED: *HR* Succinylcholine 200 MG/10 ML VIAL IVP ONE (16:24)
[2019-11-24] MEDS ORDERED: Lidocaine -MPF 4% 5 ML AMPUL ONE (16:24)
[2019-11-24] MEDS ORDERED: *HR* Propofol 200 MG/20 ML VIAL IVP ONE ×2 (16:25→16:28)
[2019-11-24] MEDS ORDERED: *HR* Promethazine 25 MG/ML VIAL IVP PRN (16:35)
[2019-11-24] MEDS ORDERED: Ondansetron 4 MG/2 ML VIAL IVP ONE (16:35)
[2019-11-24] MEDS ORDERED: *HR* OxyCODONE Immed Rel 5 MG TABLET PO PRN (16:35)
[2019-11-24] MEDS ORDERED: Dexamethasone 4 MG/ML VIAL ONE (16:59)
[2019-11-24] MEDS ORDERED: *HR* PHENYLEPHRINE 1,000 MCG/10 ML SYRINGE IVP ONE (16:59)
[2019-11-24] MEDS ORDERED: Ondansetron 4 MG/2 ML VIAL ONE (16:59)
[2019-11-24] MEDS ORDERED: Albumin Human 5% 25.0 GM/500 ML IV.SOLN ONE (17:25)
[2019-11-24] MEDS ORDERED: *HR* Enoxaparin 30 MG/0.3 ML SYRINGE SQ SCH (18:00)
[2019-11-24] MEDS: *HR* HYDROmorphone PF 0.5 MG/0.5 ML SYRINGE IVP PRN ×2 (18:35→18:47)
[2019-11-24 18:52] LABS: Hematocrit 33.6 % (37.5-50.1)
[2019-11-24 18:53] LABS: Hemoglobin 10.7 g/dL (12.9-16.9)
[2019-11-24] MEDS ORDERED: Naloxone 0.4 MG/ML INJ IVP PRN (19:22)
[2019-11-24] MEDS ORDERED: MOM Conc 10 ML UD.LIQ PO PRN (19:22)
[2019-11-24] MEDS ORDERED: Sennosides 8.6 MG TABLET PO PRN (19:22)
[2019-11-24] MEDS ORDERED: Ondansetron 4 MG/2 ML VIAL IVP PRN (19:22)
[2019-11-24] MEDS: carvediloL 6.25 MG TABLET PO SCH (19:54)
[2019-11-24] MEDS: CeFAZolin 2 GM/120 ML BAG IVPB SCH (23:25)
[2019-11-25] MEDS: *HR* OxyCODONE/APAP 5/325 TABLET PO PRN ×2 (02:12→12:08)
[2019-11-25 04:42] LABS: Hematocrit 32.1 % (37.5-50.1); Hemoglobin 10.2 g/dL (12.9-16.9)
[2019-11-25 05:01] LABS: BUN/Creatinine Ratio 23 (6-26); Blood Urea Nitrogen 12 mg/dL (8-23); Calcium 8.3 mg/dL (8.6-10.3); Carbon Dioxide 26 mEq/L (23-29); Chloride 105 mEq/L (98-107); Glucose 193 mg/dL (70-105); Osmolality,Calculated 287 (280-300); Sodium 136 mEq/L (136-145); eGFR For African Americans > 60 (> 60); eGFR For Non-African Americans > 60 (> 60)
[2019-11-25] MEDS: *HR* OxyCODONE Immed Rel 5 MG TABLET PO PRN ×2 (05:12→09:13)
[2019-11-25] MEDS ORDERED: *HR* Enoxaparin 30 MG/0.3 ML SYRINGE SQ SCH (06:00)
[2019-11-25] MEDS: carvediloL 6.25 MG TABLET PO SCH (08:37)
[2019-11-25] MEDS: CeFAZolin 2 GM/120 ML BAG IVPB SCH (08:37)
[2019-11-25] MEDS ORDERED: Fluticasone Propionate Nasal 50 MCG/SPRAY BOTTLE NS SCH (09:00)
[2019-11-25] MEDS ORDERED: Acetaminophen IV 1,000 MG/100 ML INFUS..BTL IVPB ONE (10:11)
[2019-11-25 11:14] VITALS: BP 119/68
== END 2019-11-25 13:29 | disposition home or self-care (01) | DRG 483 ==
LOC: SAMDAY 13:29 → 3NENU 19:24
PROVIDERS: ADMIT Orthopaedic Surgery; ATTEND Orthopaedic Surgery

== ENCOUNTER 2020-06-13 09:50 | Inpatient (IN) ==
[2020-06-13] MEDS ORDERED: CeFAZolin Syr 3,000MG/30 ML 3,000 MG/30 ML SYRINGE IVPB ONE (10:14)
[2020-06-13] MEDS ORDERED: Ringers Solution, Lactated 1,000 ML IVC SCH ×2 (10:15→15:05)
[2020-06-13] MEDS ORDERED: Pregabalin 75 MG CAPSULE PO ONE (10:47)
[2020-06-13] MEDS ORDERED: *HR* Meperidine 25 MG/ML SYRINGE IVP PRN (10:47)
[2020-06-13] MEDS ORDERED: Acetaminophen IV 1,000 MG/100 ML BAG IVPB ONE (10:47)
[2020-06-13] MEDS ORDERED: Ondansetron 4 MG/2 ML VIAL IVP PRN ×2 (10:47→15:05)
[2020-06-13] MEDS ORDERED: *HR* HYDROmorphone PF 0.5 MG/0.5 ML SYRINGE IVP PRN (10:47)
[2020-06-13] MEDS ORDERED: Ropivacaine/PF 0.5% 30 ML VIAL ONE (11:10)
[2020-06-13] MEDS ORDERED: *HR* Midazolam HCl 2 MG/2 ML VIAL ONE (11:31)
[2020-06-13] MEDS ORDERED: *HR* FentaNYL (PF) 100 MCG/2 ML VIAL ONE (11:31)
[2020-06-13] MEDS ORDERED: *HR* Propofol 200 MG/20 ML VIAL IVP ONE ×3 (11:31→12:18)
[2020-06-13] MEDS ORDERED: Tranexamic Acid 1,000 MG/10 ML VIAL ONE (11:37)
[2020-06-13] MEDS ORDERED: *HR* PHENYLEPHRINE 1,000 MCG/10 ML SYRINGE IVP ONE (12:02)
[2020-06-13] MEDS ORDERED: Povidone-Iodine 45 ML, Sodium Chloride IRRigation 1,000 ML IR ONE (12:10)
[2020-06-13] MEDS ORDERED: TOTAL JOINT MIXTURE (100ML) INTRAART ONE (12:10)
[2020-06-13 15:05] LABS: Hematocrit 37.3 % (37.5-50.1)
[2020-06-13] MEDS ORDERED: Dextrose Gel 15 GM/37.5 ML TUBE PO PRN ×2 (15:05)
[2020-06-13] MEDS ORDERED: Naloxone 0.4 MG/ML INJ IVP PRN (15:05)
[2020-06-13] MEDS ORDERED: D5% in Water 1,000 ML IVC PRN (15:05)
[2020-06-13] MEDS ORDERED: MOM Conc 10 ML UD.LIQ PO PRN (15:05)
[2020-06-13] MEDS ORDERED: HYDROcodone BIT/Homatropine 5 MG TABLET PO PRN (15:05)
[2020-06-13] MEDS ORDERED: Sennosides 8.6 MG TABLET PO PRN (15:05)
[2020-06-13] MEDS ORDERED: *HR* Promethazine 25 MG/ML VIAL IM PRN (15:05)
[2020-06-13] MEDS ORDERED: SUMAtriptan succinate 50 MG TABLET PO PRN (15:05)
[2020-06-13] MEDS ORDERED: *HR* Dextrose 50 % in Water (Vial) 50 ML VIAL IVP PRN (15:05)
[2020-06-13 15:28] LABS: Hemoglobin 11.8 g/dL (12.9-16.9)
[2020-06-13] MEDS: Insulin LISPRO 300 UNITS/3 ML VIAL SUBQ SCH (17:08)
[2020-06-13] MEDS: Ascorbic Acid 500 MG TABLET PO SCH (17:40)
[2020-06-13] MEDS: Cholecalciferol (D-3) 1,000 UNIT (25MCG) TABLET PO SCH (17:40)
[2020-06-13] MEDS: *HR* OxyCODONE Immed Rel 5 MG TABLET PO PRN ×2 (17:40→22:59)
[2020-06-13] MEDS: carvediloL 6.25 MG TABLET PO SCH (17:41)
[2020-06-13] MEDS: ceFAZolin 3,000 MG in 0.9 % Sodium Chloride 100 ML IVPB SCH ×2 (17:41→23:00)
[2020-06-13] MEDS ORDERED: Insulin LISPRO 300 UNITS/3 ML VIAL SUBQ SCH (21:00)
[2020-06-14] MEDS: *HR* OxyCODONE Immed Rel 5 MG TABLET PO PRN ×2 (06:11→11:39)
[2020-06-14 07:14] LABS: Basophils % 0.2 %; Hematocrit 35.6 % (37.5-50.1); Hemoglobin 11.1 g/dL (12.9-16.9); Immature Granulocytes % 0.3 % (0-4); Lymphocytes # 0.9 K/mcL (0.6-4.6); Lymphocytes % 8.8 %; Mean Corpuscular HGB Conc 31.2 g/dL (31.6-35.5); Mean Corpuscular Volume 89.9 fL (83.0-100.0); Mean Platelet Volume 11.2 fL (9.4-12.4); Monocytes # 0.9 K/mcL (0.0-1.3); Monocytes % 8.8 %; Neutrophils # 8.6 K/mcL (1.6-8.9); Platelet Count 263 K/mcL (140-400); Red Blood Count 3.96 M/mcL (4.19-5.50); Red Cell Distribution Width 13.5 % (11.5-14.5); Segmented Neutrophils % 81.9 %; White Blood Count 10.5 K/mcL (4.3-11.1)
[2020-06-14 07:23] LABS: BUN/Creatinine Ratio 27 (6-26); Blood Urea Nitrogen 17 mg/dL (8-23); Calcium 8.5 mg/dL (8.6-10.3); Carbon Dioxide 27 mEq/L (23-29); Chloride 104 mEq/L (98-107); Glucose 134 mg/dL (70-105); Osmolality,Calculated 286 (280-300); Potassium 4.1 mEq/L (3.5-5.1); Sodium 136 mEq/L (136-145); eGFR For African Americans > 60 (> 60); eGFR For Non-African Americans > 60 (> 60)
[2020-06-14] MEDS ORDERED: Multivit/Ca/Min/Fe/FA 1 TAB TABLET PO SCH (09:00)
[2020-06-14] MEDS ORDERED: Fluticasone Propionate Nasal 50 MCG/SPRAY BOTTLE NS SCH (09:00)
[2020-06-14] MEDS ORDERED: Aspirin Enteric Coated 81 MG Tablet PO SCH ×2 (09:00)
[2020-06-14] MEDS: Insulin LISPRO 300 UNITS/3 ML VIAL SUBQ SCH ×2 (09:01→11:39)
[2020-06-14] MEDS: carvediloL 6.25 MG TABLET PO SCH (09:02)
[2020-06-14] MEDS: Cholecalciferol (D-3) 1,000 UNIT (25MCG) TABLET PO SCH (09:02)
[2020-06-14] MEDS: Ascorbic Acid 500 MG TABLET PO SCH (09:03)
[2020-06-14 11:00] VITALS: BP 120/80
== END 2020-06-14 13:13 | disposition home or self-care (01) | DRG 468 ==
LOC: SAMDAY 09:50 → 3NENU 15:04
PROVIDERS: ADMIT Orthopaedic Surgery; ATTEND Orthopaedic Surgery